=== PATIENT | female | born 1950 | race Caucasian/White ===

== ENCOUNTER 2022-08-08 14:08 | Outpatient (CLI) | payer MEDICARE ==
[~2022-08-08 14:08] MED LIST: Magnevist 469MG/ML 20 ML VIAL ONE
== END 2022-08-08 14:09 | disposition home or self-care (01) ==
LOC: CSHMRI 14:08
PROVIDERS: ATTEND Neurological Surgery
DX: D32.9 Benign neoplasm of meninges, unspecified (principal); D32.0 Benign neoplasm of cerebral meninges
CPT/HCPCS: 70553; 82565

== ENCOUNTER 2023-12-02 08:52 | Outpatient (CLI) | payer MEDICARE | END 2023-12-02 08:53 | disposition home or self-care (01) | LOC: CSHMRI 08:52 | PROVIDERS: ATTEND Neurological Surgery | DX: D32.9 Benign neoplasm of meninges, unspecified (principal); Z98.890 Other specified postprocedural states | CPT/HCPCS: 70553; 76377; 82565 ==

== ENCOUNTER 2024-12-04 13:29 | Outpatient (CLI) | payer MEDICARE ==
[2024-12-04 14:49] LABS: Estimated GFR - POC 47.0
== END 2024-12-04 13:30 | disposition home or self-care (01) ==
LOC: CSHMRI 13:29
PROVIDERS: ATTEND Neurological Surgery
DX: D32.9 Benign neoplasm of meninges, unspecified (principal); Z98.890 Other specified postprocedural states
CPT/HCPCS: 36415; 70553; 76376; 82565